=== PATIENT | male | born 1990 | race Caucasian/White ===

== ENCOUNTER 2019-09-18 13:43 | Inpatient (IN) | payer OTHER ==
[~2019-09-18] VITALS: Ht 180.3 cm; Wt 78.9 kg
[2019-09-18] MEDS ORDERED: TIZA4CAP PO (13:57)
[2019-09-18] MEDS ORDERED: NICOTINE 21MG/24HR 1 EA TRANSDERMAL TD ONE (14:15)
[2019-09-18 14:50] LABS: HEMATOCRIT 47.7 % (42.0-52.0); HEMOGLOBIN 16.3 g/dl (13.5-17.5); MEAN CORPUSCULAR HEMOGLOBIN 29.8 pg (27.0-33.0); MEAN CORPUSCULAR HGB CONC 34.2 g/dl (32.0-36.5); MEAN CORPUSCULAR VOLUME 87.2 fl (80.0-96.0); PLATELET COUNT, AUTOMATED 311 10^3/uL (150-450); RED BLOOD COUNT 5.47 10^6/uL (4.30-6.10); WHITE BLOOD COUNT 5.9 10^3/uL (4.0-10.0)
[2019-09-18 15:11] LABS: AMPHETAMINES LEVEL URINE NEGATIVE (NEGATIVE); BARBITURATES URINE NEGATIVE (NEGATIVE); BENZODIAZEPINES URINE NEGATIVE (NEGATIVE); CANNABINOIDS URINE NEGATIVE (NEGATIVE); COCAINE METABOLITE URINE NEGATIVE (NEGATIVE); METHADONE URINE NEGATIVE (NEGATIVE); OPIATES URINE NEGATIVE (NEGATIVE); PHENCYCLIDINE URINE NEGATIVE (NEGATIVE)
[2019-09-18 16:02] LABS: ACETAMINOPHEN LEVEL < 2.0 UG/ML (10.0-30.0); ALBUMIN 4.4 GM/DL (3.2-5.2); ALT/SGPT 41 U/L (12-78); BILIRUBIN,DIRECT 0.1 MG/DL (0.0-0.2); BILIRUBIN,TOTAL 0.5 MG/DL (0.2-1.0); BLOOD UREA NITROGEN 15 MG/DL (7-18); CALCIUM LEVEL 9.1 MG/DL (8.5-10.1); CARBON DIOXIDE LEVEL 26 MEQ/L (21-32); CHLORIDE LEVEL 105 MEQ/L (98-107); ETHYL ALCOHOL (ETHANOL) < 0.003 % (0.000-0.010); GLOMERULAR FILTRATION RATE > 60.0 (>60); GLUCOSE, FASTING 92 MG/DL (70-100); POTASSIUM SERUM 4.5 MEQ/L (3.5-5.1); SALICYLATE LEVEL < 1.7 MG/DL (5.0-30.0); SODIUM LEVEL 141 MEQ/L (136-145); TOTAL PROTEIN 8.1 GM/DL (6.4-8.2)
--- NOTE | 2019-09-18 17:03 | REP ---
CT BRAIN WITHOUT CONTRAST: REASON: New onset hallucinations. PRIORS: None. TECHNIQUE: 4.5 mm contiguous transaxial sections were obtained from the skull base to the cerebral convexities with thin cuts through the posterior fossa without the administration of intravenous contrast. FINDINGS: The ventricles and sulci are consistent with the patient's age. There are no extra-axial fluid collections. There is no mass effect. The deep cerebral white matter is consistent with the patient's age. The orbital and petrous structures, cerebellopontine angles, and posterior fossa are unremarkable. The sella turcica, cavernous, and paracavernous structures are essentially unremarkable. The visualized portions of the paranasal sinuses and mastoid air cells are clear. Images of the skull base show no gross abnormality. IMPRESSION: Essentially unremarkable CT examination of the brain. Electronically Signed by Lazarus Doherty DO 09/18/2019 05:11 P
[2019-09-18] MEDS ORDERED: MAALOX 30 ML SUSP *UDC PO PRN (19:30)
[2019-09-18] MEDS ORDERED: MOM 30ML SUSPENSION UDC PO PRN (19:30)
[2019-09-18] MEDS ORDERED: ACETAMINOPHEN TAB 650MG DOSE (2X325MG) PO PRN (19:30)
[2019-09-18 22:49] VITALS: BP 142/96
[2019-09-18] MEDS: traZODone 50 MG TAB PO PRN (23:32)
[2019-09-19 06:35] VITALS: BP 128/74
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
[2019-09-19] MEDS ORDERED: VENLAFAXINE **XR** 37.5 MG CAPSULE PO ONE (14:00)
[2019-09-19] MEDS: NICOTINE 14 MG/24 HR TRANSDERMAL TD SCH (17:05)
[2019-09-19 17:12] VITALS: BP 142/71
--- NOTE | 2019-09-19 19:14 | HPEPDOC ---
General Date of Admission September 18, 2019 at 19:19 Date of Service: September 19, 2019 Attending Physician: TANYA VARGAS MD Chief Complaint The patient is a 28-year-old male admitted with a reason for visit of Unspecified Depressive Disorder. 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 in 07/2019 and reporting prior workup for possible dx of bipolar though never officially dx, prior suicide attempt 7y ago, who presented per recommendation of his mental health provider for anxiety, feeling "empty", paranoid about people watching him and meaning to cause him harm and most recently disorganized loud auditory hallucinations. He denies active SI and HI. In the ED, CBC, BMP and tox screen were wnl. Internal medicine is consulted for medical evaluation. Home Medications No Active Prescriptions or Reported Meds Allergies Coded Allergies: No Known Allergies (Unverified , 09/18/19) Past Medical History Medical History perviously had work up for possible bipolar but was never diagnosed. Surgical History none Family History Significant Family History: No pertinent family hx Social History * Smoker: Denies Alcohol: Denies Drugs: denies Recent Travel/Sick Contacts: Reports: Recent travel (returned from [facility] in 07/2019); Denies: Recent sick contacts Psychosocial History: Anxiety, Decreased mood, Manjinder SI and HI, Depression, Other (AH) . Has served 3 tours, returned from [facility] in 07/2019 A-FIB/CHADSVASC A-FIB History Current/History of A-Fib/PAF?: No Current PO Anticoag Therapy: No Age/Risk Factor Scoring CHADSVASC: CHADSVASC Response (Comments) Value Gender Risk Factor Male 0 Hx of CHF No 0 Hx of HTN No 0 Hx of Stroke/TIA/or VTE No 0 Hx of Diabetes No 0 Hx of Vascular Disease No 0 Total 0 Treatment Treatment ordered: NONE Reason Anticoagulant not given: Not indicated/[id number] Review of Systems Constitutional: Denies: Chills, Fever, Night Sweats Eyes: Denies: Pain, Vision change ENT: Denies: Head Aches, Ear Pain, Dysphagia Skin: Denies: Rash, Lesions, Breakdown Pulmonary: Denies: Dyspnea, Cough Cardiovascular: Denies: Chest Pain, Palpitations, Orthopnea, Paroxysmal Noc. Dyspnea, Lt Headedness Gastrointestinal: Denies: Nausea, Vomiting, Abdominal Pain, Diarrhea Genitourinary: Denies: Dysuria, Frequency, Incontinence, Retention Hematologic: Denies: Bruising, Bleeding Excessively Endocrine: Denies: Polydipsia, Polyphagia, Polyuria, Heat Intolerance, Cold Intolerance, Other Endocrine Sx Musculoskeletal: Denies: Neck Pain, Back Pain, Joint Pain, Muscle Pain, Spasms Neurological: Denies: Weakness, Numbness, Change in speech, Confusion Psych: Reports: Anxiety, Depression, Other Psych (auditory hallucinations, poor sleep) Physical Examination General Exam: Positive: Alert, No Acute Distress Eye Exam: Positive: PERRLA, Conjunctiva & lids normal, EOMI; Negative: Sclera icteric ENT Exam: Positive: Atraumatic, Mucous membr. moist/pink, Pharynx Normal Neck Exam: Positive: Supple; Negative: JVD, thyromegaly Chest Exam: Positive: Clear to auscultation, Normal air movement Heart Exam: Positive: Rate Normal, Regular Rhythm, Normal S1, Normal S2; Negative: Murmurs, Rubs Abdomen Exam: Positive: Normal bowel sounds, Soft; Negative: Tenderness, Hepatospenomegaly Extremity Exam: Positive: Normal pulses; Negative: Clubbing, Cyanosis, Edema Skin Exam: Positive: Nl turgor and temperature; Negative: Breakdown, Lesion Psych Exam: Positive: Mental status NL, Oriented x 3 Vital Signs Vital Signs Date Time Temp Pulse Resp B/P (MAP) Pulse Ox O2 Delivery O2 Flow Rate FiO2 09/19/19 06:35 98.6 88 16 128/74 (92) 95 Room Air Laboratory Data Labs 24H Laboratory Tests 2 09/18/19 14:29: Nucleated Red Blood Cells % (auto) 0.0, Anion Gap 10, Glomerular Filtration Rate > 60.0, Calcium Level 9.1, Total Bilirubin 0.5, Direct Bilirubin 0.1, Aspartate Amino Transf (AST/SGOT) 14, Alanine Aminotransferase (ALT/SGPT) 41, Alkaline Phosphatase 68, Total Protein 8.1, Albumin 4.4, Albumin/Globulin Ratio 1.2, Thyroid Stimulating Hormone (TSH) 2.030, Salicylates Level < 1.7L, Urine Opiates Screen NEGATIVE, Urine Methadone Screen NEGATIVE, Acetaminophen Level < 2.0L, Urine Barbiturates Screen NEGATIVE, Urine Phencyclidine Screen NEGATIVE, Urine Amphetamines Screen NEGATIVE, Urine Benzodiazepines Screen NEGATIVE, Urine Cocaine Metabolite Screen NEGATIVE, Urine Cannabinoids Screen NEGATIVE, Ethyl Alcohol Level < 0.003 CBC/BMP Laboratory Tests 09/18/19 14:29 Assessment/Plan 28 yo active s/p 3 tours of duty, who recently returned from [place] in 07/2019 and reporting prior workup for possible dx of bipolar thou gh never officially dx, prior suicide attempt 7y ago, who presented per recommendation of his mental health provider for anxiety, feeling "empty", paranoid about people watching him and meaning to cause him harm and most recently disorganized loud auditory hallucinations with grossly normal labs and physical examination. Will defer evaluation and treatment for the ongoing psychiatric symptoms to the primary team. Without noted acute medical issues, I will sign off at this time. Thank you for involving us in the care of Mr. Apple. Plan / VTE VTE Prophylaxis Ordered?: No VTE Exclusion Mechanical Proph: Low Risk for VTE VTE Exclusion Pharmacological: At Low Risk for VTE TANYA VARGAS MD September 19, 2019 13:53
[2019-09-19] MEDS: traZODone 50 MG TAB PO PRN (20:04)
[2019-09-19] MEDS: PRAZOSIN 1 MG CAP PO SCH (20:04)
[2019-09-20 05:59] VITALS: BP 121/69
[2019-09-20] MEDS: VENLAFAXINE **XR** 37.5 MG CAPSULE PO SCH (09:19)
[2019-09-20] MEDS: NICOTINE 14 MG/24 HR TRANSDERMAL TD SCH (09:21)
[2019-09-20 16:23] VITALS: BP 132/88
[2019-09-20] MEDS: PRAZOSIN 1 MG CAP PO SCH (20:15)
[2019-09-20] MEDS: traZODone 50 MG TAB PO PRN (20:15)
[2019-09-21 06:24] VITALS: BP 144/66
[2019-09-21] MEDS: NICOTINE 14 MG/24 HR TRANSDERMAL TD SCH (09:10)
[2019-09-21] MEDS: VENLAFAXINE **XR** 37.5 MG CAPSULE PO SCH (09:10)
--- NOTE | 2019-09-21 15:24 | MHIPN ---
DATE: 09/20/2019 This is a telemedicine video assessment, it is being done because of the pandemic crisis. He is aware of this. VITAL SIGNS: Blood pressure 121/69, pulse 84, temperature 98.5. CHIEF COMPLAINT: Feels better. SUBJECTIVE: Seen for followup. Says has been feeling better, but still anxious, says being here also helps with him getting a perspective on his state. Sleep is difficult. Has nightmares, says they are frequent. No flashbacks as such regarding deployment, but does say he is still quite hypervigilant. Feels worse more lately compared to when he first got back from deployment just over a month ago. Says has been in touch with his . She is his main support. They have four children. Denies suicidal thoughts or intent. Says thinks about his deployment . MENTAL STATUS EXAM: He is neat, he is cooperative. There is no agitation. No psychomotor retardation. Appears mildly anxious, coherent. No abnormal movements noted. Denies any thoughts of harming himself or anyone else. At present, does not appear to be internally preoccupied. No delusional ideations elicited. Cognition grossly intact. Judgment improved, as is insight. ASSESSMENT: Post-traumatic stress disorder. PLAN: Continue venlafaxine 37.5 mg daily. Continue prazosin 1 mg at night. Both those medications were started in the hospital. He is tolerating them well so far. Will look at titrating the venlafaxine upwards to a more robust therapeutic dose. We will continue with the rest of the observation and care.
[2019-09-21 16:47] VITALS: BP 144/91
[2019-09-21] MEDS ORDERED: tiZANidine 4 MG TAB PO PRN (18:15)
[2019-09-21 20:13] VITALS: BP 142/98
[2019-09-21] MEDS: PRAZOSIN 1 MG CAP PO SCH (20:13)
[2019-09-21] MEDS: traZODone 50 MG TAB PO PRN (20:47)
[2019-09-22 06:38] VITALS: BP 140/82
[2019-09-22] MEDS: NICOTINE 14 MG/24 HR TRANSDERMAL TD SCH (08:04)
[2019-09-22] MEDS ORDERED: VENLAFAXINE **XR** 75MG CAPSULE PO SCH (09:00)
--- NOTE | 2019-09-22 10:05 | MHDSPDOC ---
[facility] Discharge Summary Discharge Summary DATE OF ADMISSION: September 18, 2019 at 19:19 DATE OF DISCHARGE: Sep 22, 2019 at 13:30 DISCHARGE DIAGNOSES: 1. PTSD, chronic. REASON FOR ADMISSION: 28 man is brought in after having increasing PTSD symptoms from combat deployment, he reports some voices as well that appeared be part of chronic flashbacks CONSULTANTS INVOLVED: none TREATMENT AND PROGRESS ON THE UNIT : patient is amidst the inpatient mental health unit started on Effexor 37.5 mg of extend release and increased to 75 mg, with positive effects. The patient did better became much more social. It became quite clear that he was not demonstrate any psychotic symptoms and that his symptoms are much more likely related to post manic stress flashbacks that were personal nature, and that he had a compelling normal way of socializing, further suggesting against the potential of schizophrenia. He did well with no behavioral problems and had denied any thoughts of self harm or harm towards others during the entirety of his admission.. DISCHARGE ASSESSMENT: 38-year-old man with likely PTSD, acute versus chronic presents and is treated with appropriate agent resolving well with a generally uneventful admission. The patient at the time of discharge did not meet criteria for involuntary admission/extension due to having a normal mental status exam, fair insight into the situation, They are engaged in the discharge process, as well as being friendly and amenable in behavioral control and havent been engaging in any observed concerning behavior or ideation recently. They decline voluntary extension/admission at this time and must be discharged in good bernarda, as Im unable to make a case for holding the patient against their will. They may have historical risk factors of admissions and other interactions with psychiatry however, those are not modifiable from a clinical perspective. The patient will need to be discharged in good bernarda. MENTAL STATUS EXAMINATION ON DISCHARGE: General: Well dressed with good hygiene Speech: Spontaneous and fluid Thought processes: Linear and logical Thought content: Future orientated Abstract reasoning, and computation: Intact Description of associations: Intact Description of abnormal or psychotic thoughts:Denies any suicidal or homicidal ideation. Denies any auditory or visual hallucinations. Does not appear to be responding to internal stimuli. Does not appear to be endorsing any bizarre or paranoid ideation. Judgment: fair Insight: fair Orientation: Alert and orientated 3 Recent and remote memory: Intact Attention span and concentration: Intact Fund of knowledge: Adequate Mood: "okay" Affect: Euthymic with a full range PLAN/FOLLOWUP ARRANGEMENTS: [facility]. The amount of time spent in the coordination of care for this patient was approximately 45 minutes. Vital Signs/I&Os Vital Signs Date Time Temp Pulse Resp B/P (MAP) Pulse Ox O2 Delivery O2 Flow Rate FiO2 09/22/19 06:38 98.1 71 12 140/82 (101) 98 Room Air Medications Scheduled Nicotine (Nicotine Patch) 14 Mg Patch.td24, 1 PATCH TD DAILY for tobacco for 30 Days, #30 Prazosin HCl (Minipress) 1 Mg Capsule, 1 MG PO QHS for nightmare for 7 Days, #7 Venlafaxine HCl (Venlafaxine HCl ER) 75 Mg Cap.er.24h, 75 MG PO DAILY for mood for 7 Days, #7 Allergies Coded Allergies: No Known Allergies (Unverified , 09/18/19) RON DE JESSU DO Sep 22, 2019 10:05
[2019-09-22] MEDS ORDERED: NICO14PA TD (10:10)
[2019-09-22] MEDS ORDERED: VENL75CA47 PO (10:10)
[2019-09-22] MEDS ORDERED: MINI1CAP PO (10:10)
--- NOTE | 2019-09-22 13:39 | MHIPN ---
DATE: 09/21/2019 VITAL SIGNS: Blood pressure 144/91, pulse 88, temperature 98.6. CHIEF COMPLAINT: Feels anxious. SUBJECTIVE: Seen for followup, in the presence of staff. Says feels okay, a bit better, less anxiety. Says slept a fair amount, but still had nightmares, thinks they were possibly a little less intense. No flashbacks. Appetite is a bit diminished today. MENTAL STATUS EXAMINATION: Neat. Cooperative. Though possibly a bit guarded. Coherent. No agitation. No psychomotor retardation. Affect reactive. Denies any thoughts of harming himself or anyone else. Currently no evidence of any psychosis. Cognition is grossly intact. Judgment, insight improved. ASSESSMENT: Post-traumatic stress disorder. PLAN: I would suggest increasing the venlafaxine to 75 mg daily. Continue prazosin 1 mg at night. Rationale for increasing the dose of venlafaxine is discussed. It may need to be titrated further up, depending on response as well, as 150 mg or above of venlafaxine is generally effective. Need to encourage to participate in care and we will continue with current observation. He will be seeing the assigned psychiatrist tomorrow.
== END 2019-09-22 13:30 | disposition home or self-care (01) | DRG 882 ==
LOC: M ED 13:43 → M ED INP 19:19 → M PSY 22:45
PROVIDERS: ADMIT Psychiatry & Neurology Psychiatry; ATTEND Psychiatry & Neurology Addiction Medicine
DX: F43.11 Post-traumatic stress disorder, acute (principal); Z91.82 Personal history of military deployment; F17.220 Nicotine dependence, chewing tobacco, uncomplicated

== ENCOUNTER → 2019-10-27 | Outpatient (REF) | payer OTHER ==
[~2019-10-27] MED LIST: MINI1CAP PO; NICO14PA TD; TIZA4CAP PO; VENL75CA47 PO
== END ==
LOC: M WUC 10:11
PROVIDERS: ATTEND Physician Assistant
DX: J02.9 Acute pharyngitis, unspecified (principal)

== ENCOUNTER → 2020-03-04 | Outpatient (CLI) | payer OTHER ==
--- NOTE | 2020-03-05 03:07 | REP ---
INDICATION: CHEST PAIN COMPARISON: None. TECHNIQUE: PA and lateral. FINDINGS: The mediastinum and cardiac silhouette are normal. The lung moore are clear and without acute consolidation, effusion, or pneumothorax. The skeletal structures are intact and normal. IMPRESSION: No acute cardiopulmonary process. <Electronically signed by Cosme Shrestha > 03/05/20 0300
== END ==
LOC: M WUC 19:21
PROVIDERS: ATTEND Physician Assistant
DX: R07.89 Other chest pain (principal)

== ENCOUNTER 2020-08-08 19:30 | Emergency (ER) | payer OTHER ==
[~2020-08-08] VITALS: Ht 180.3 cm; Wt 87.6 kg
[2020-08-08] MEDS ORDERED: GABA-1171 PO (19:52)
[2020-08-08] MEDS ORDERED: DULO1CAP4 PO (19:52)
[2020-08-08 20:49] LABS: BASO % 0.7 % (0.0-1.0); EOS # 0.2 10^3/uL (0.0-0.5); EOS % 2.8 % (0.0-3.0); HEMATOCRIT 46.7 % (42.0-52.0); HEMOGLOBIN 15.9 g/dl (13.5-17.5); LYMPH # 2.6 10^3/uL (1.5-5.0); LYMPH % 43.4 % (24.0-44.0); MEAN CORPUSCULAR HEMOGLOBIN 30.1 pg (27.0-33.0); MEAN CORPUSCULAR VOLUME 88.4 fl (80.0-96.0); MONO # 0.6 10^3/uL (0.0-0.8); MONO % 9.1 % (2.0-8.0); NEUTROPHILS # 2.6 10^3/uL (1.5-8.5); NEUTROPHILS % 43.5 % (36.0-66.0); PLATELET COUNT, AUTOMATED 289 10^3/uL (150-450); RED BLOOD COUNT 5.28 10^6/uL (4.30-6.10)
[2020-08-08 20:58] LABS: ALBUMIN 4.1 GM/DL (3.2-5.2); ALT/SGPT 52 U/L (12-78); BILIRUBIN,DIRECT < 0.1 MG/DL (0.0-0.2); BILIRUBIN,TOTAL 0.4 MG/DL (0.2-1.0); C REACTIVE PROTEIN QUANTITATIV < 0.30 MG/DL (0.00-0.30); TOTAL PROTEIN 7.5 GM/DL (6.4-8.2)
[2020-08-08 21:00] LABS: MONO SCRN NEGATIVE (NEGATIVE)
[2020-08-08 21:16] LABS: ERYTHROCYTE SEDIMENTATION RATE 3 mm/hr (0-15)
[2020-08-08] MEDS ORDERED: MORPHINE 4 MG/ML 1ML VIAL/SYRINGE (J2270) IV ONE (21:30)
[2020-08-08] MEDS ORDERED: ONDANSETRON 4MG/2ML VIAL IV ONE (21:30)
--- NOTE | 2020-08-08 22:12 | REPVR ---
PROCEDURE INFORMATION: Exam: CT Head Without Contrast Exam date and time: 08/08/2020 9:47 PM Age: 29 years old Clinical indication: Pain; Other: Neck; Patient HX: ? Meningitis; Additional info: Neck pain TECHNIQUE: Imaging protocol: Computed tomography of the head without contrast. Radiation optimization: All CT scans at this facility use at least one of these dose optimization techniques: automated exposure control; mA and/or kV adjustment per patient size (includes targeted exams where dose is matched to clinical indication); or iterative reconstruction. COMPARISON: CT Head without contrast 09/18/2019 4:07 PM FINDINGS: Brain: No intracranial mass, mass effect or midline shift. No acute intracranial hemorrhage. No CT evidence of acute cortical infarct. Ventricles, cisterns, and sulci are normal in size for age. Bones/joints: No calvarial fracture or destructive process. Paranasal sinuses: Imaged paranasal sinuses are normally aerated. Mastoid air cells: Mastoid air cells and middle ear structures are normally aerated. Orbital cavity: Imaged orbits are unremarkable. Soft tissues: No focal extracranial soft tissue swelling. IMPRESSION: No acute or concerning focal intracranial abnormality. Electronically signed by: Angel Montoya On 08/08/2020 22:12:27 PM
--- NOTE | 2020-08-08 22:13 | REPVR ---
PROCEDURE INFORMATION: Exam: CT Neck Without Contrast Exam date and time: 08/08/2020 9:47 PM Age: 29 years old Clinical indication: The TECHNIQUE: Imaging protocol: Computed tomography images of the neck without contrast. Radiation optimization: All CT scans at this facility use at least one of these dose optimization techniques: automated exposure control; mA and/or kV adjustment per patient size (includes targeted exams where dose is matched to clinical indication); or iterative reconstruction. COMPARISON: No relevant prior studies available. FINDINGS: No focal subcutaneous soft tissue edema. Parapharyngeal soft tissue planes are symmetric and appear normal. Posterior nasopharynx soft tissues are unremarkable. Imaged skull base structures are intact. No abnormally enlarged cervical chain or jugulodigastric lymph nodes. Muscles of mastication and strap muscles of the neck appear normal. Parotid and minor salivary glands are unremarkable. Floor of the mouth and tongue base soft tissues appear normal. Structures of the larynx appear symmetric and normal. No retropharyngeal fluid Thyroid gland and thoracic inlet structures are unremarkable. Bony structures are unremarkable for age. IMPRESSION: Unremarkable nonenhanced CT of the neck soft tissues. Electronically signed by: Angel Montoya On 08/08/2020 22:14:23 PM
[2020-08-08 23:38] VITALS: BP 131/95
== END 2020-08-08 23:40 | disposition home or self-care (01) ==
LOC: M ED 19:30
DX: M54.2 Cervicalgia (principal); G89.29 Other chronic pain; M54.9 Dorsalgia, unspecified; F41.9 Anxiety disorder, unspecified; F32.9 Major depressive disorder, single episode, unspecified; F43.21 Adjustment disorder with depressed mood
CPT/HCPCS: 70450; 70490; 80047; 80076; 85025; 85652; 86140; 86308; 87798; 87880; 96374; 96375; 99284; J2270; J2405

== ENCOUNTER 2021-04-15 22:12 | Emergency (ER) | payer OTHER ==
[~2021-04-15] VITALS: Ht 180.3 cm; Wt 88.6 kg
[~2021-04-15 22:12] MED LIST changes: +DULO1CAP4 PO; +GABA-1171 PO
[2021-04-16] MEDS ORDERED: ISOVUE-370 76% 100ML VIAL As Ordered ONE (00:30)
[2021-04-16 01:30] LABS: BASO # 0.1 10^3/uL (0.0-0.2); BASO % 0.8 % (0.0-1.0); EOS # 0.2 10^3/uL (0.0-0.5); EOS % 2.6 % (0.0-3.0); HEMATOCRIT 44.9 % (42.0-52.0); HEMOGLOBIN 15.6 g/dl (13.5-17.5); LYMPH # 3.4 10^3/uL (1.5-5.0); LYMPH % 39.4 % (24.0-44.0); MEAN CORPUSCULAR HEMOGLOBIN 29.8 pg (27.0-33.0); MEAN CORPUSCULAR HGB CONC 34.7 g/dl (32.0-36.5); MEAN CORPUSCULAR VOLUME 85.9 fl (80.0-96.0); MONO # 0.6 10^3/uL (0.0-0.8); MONO % 7.3 % (2.0-8.0); NEUTROPHILS # 4.3 10^3/uL (1.5-8.5); NEUTROPHILS % 49.6 % (36.0-66.0); PLATELET COUNT, AUTOMATED 303 10^3/uL (150-450); RED BLOOD COUNT 5.23 10^6/uL (4.30-6.10); WHITE BLOOD COUNT 8.7 10^3/uL (4.0-10.0)
[2021-04-16] MEDS ORDERED: GI COCKTAIL 50ML BTL(HYOSCYAMINE/MAALOX/LIDOCAINE VISCOUS)(1:3:1) PO ONE (02:00)
[2021-04-16] MEDS ORDERED: PANTOPRAZOLE 40MG VIAL (C9113 PER 1) IV ONE (02:00)
[2021-04-16 02:08] LABS: ALBUMIN 3.7 GM/DL (3.2-5.2); ALT/SGPT 34 U/L (12-78); BILIRUBIN,DIRECT < 0.1 MG/DL (0.0-0.2); BILIRUBIN,TOTAL 0.3 MG/DL (0.2-1.0); LIPASE 158 U/L (73-393); TOTAL PROTEIN 7.7 GM/DL (6.4-8.2)
[2021-04-16] MEDS ORDERED: OMEP40CA4 PO (02:54)
[2021-04-16] MEDS ORDERED: ACETAMINOPHEN 325 MG TAB PO ONE (03:00)
[2021-04-16 03:12] VITALS: BP 159/97
== END 2021-04-16 03:13 | disposition home or self-care (01) ==
LOC: M ED 22:12
DX: K29.00 Acute gastritis without bleeding (principal); R10.13 Epigastric pain; R11.0 Nausea; F41.9 Anxiety disorder, unspecified; F31.89 Other bipolar disorder; M54.9 Dorsalgia, unspecified; Z79.899 Other long term (current) drug therapy
CPT/HCPCS: 74177; 80047; 80076; 83690; 85025; 96374; 99284; C9113; Q9967